=== PATIENT | female | born 1945 | race Caucasian/White ===

== ENCOUNTER 2018-10-21 07:39 | Observation (INO) | payer MEDICARE ==
[~2018-10-21] VITALS: Ht 157.5 cm; Wt 74.4 kg
[2018-10-21] MEDS ORDERED: DILTIAZEM120 M1 PO (08:05)
[2018-10-21] MEDS ORDERED: ELIQUIS5 MG PO (08:06)
[2018-10-21] MEDS ORDERED: LEVOTHYROXIN75 MCG PO (08:07)
--- NOTE | 2018-10-21 08:11 | NUR ---
PT APPEARS TO BE ALERT/ORIENTED X3, DOESNT REMEMBER IF SHE PASSED OUT OR NOT, STATES FELT A LITTLE SHAKEY UPON GETTING UP THIS AM, AND LAID DOWN ON THE FLOOR INSTEAD OF FALLING.
[2018-10-21 08:19] LABS: HEMATOCRIT 45.9 % (37.0-47.0); HEMOGLOBIN 15.6 g/dl (12.0-16.0); IMMATURE GRANULOCYTES 0.3 % (0.0-5.0); MEAN CELL VOLUME 87.3 fL CALC (80.0-100.0); MEAN CORPUSCULAR HGB 29.7 pG CALC (26.0-32.0); NEUT# 3.46 thou/uL (2.00-7.15); RED BLOOD COUNT 5.26 mill/uL (4.20-5.60); RED CELL DISTRI WIDTH 12.3 % (11.5-15.5)
[2018-10-21 08:30] LABS: ANION GAP 13 (6-22 (CALC)); BUN 22 mg/dL (8-23); BUN/CREATININE RATIO 32 (12-20 (CALC)); CARBON DIOXIDE 27 mmol/l (22-30); CHLORIDE 106 mmol/l (95-108); CREATININE 0.7 mg/dL (0.5-1.0); GFR > 60 ML/MIN (>=60 (CALC)); GFR FOR AFR.AMER. > 60 ML/MIN (>=60 (CALC)); POTASSIUM 3.7 mmol/l (3.5-5.1); SODIUM 142 mmol/l (137-146)
--- NOTE | 2018-10-21 09:06 | NUR ---
2ND EKG OBTAINED
--- NOTE | 2018-10-21 09:09 | NUR ---
PT RESTING QUIETLY ON STRETCHER, FAMILY AT BEDSIDE, PT STATES FEELS BETTER.
[2018-10-21 09:22] LABS: URINE BILIRUBIN - DIPSTICK NEGATIVE (NEGATIVE); URINE BLOOD DIPSTICK NEGATIVE (NEGATIVE); URINE COLOR YELLOW; URINE GLUCOSE - DIPSTICK NEGATIVE (NEGATIVE); URINE KETONE TRACE mg/dL (NEGATIVE); URINE LEUK ESTERASE NEGATIVE (NEGATIVE); URINE NITRITE - DIPSTICK NEGATIVE (Negative); URINE PH 6.5 (4.5-8.0); URINE PROTEIN - DIPSTICK NEGATIVE (NEG-TRACE); URINE SPECIFIC GRAVITY 1.015; URINE UROBILINOGEN - DIPSTICK 0.2 E.U./dL (0.2)
--- NOTE | 2018-10-21 09:44 | NUR ---
WAITING FOR ORDERS FROM DR. SILVERIO, PT REMAINS A/O X3, SMILING AND TALKING WITH FAMILY. SIDE RAILS UP, CALL LIGHT WITHIN REACH
[2018-10-21 10:01] VITALS: BP 123/85
--- NOTE | 2018-10-21 10:01 | NUR ---
PT CAME FROM ER VIA STRETCHER BY MARTI. DAUGHTER IN ROOM. CALL LIGHT IN REACH.
--- NOTE | 2018-10-21 10:07 | NUR ---
PT REPORT GIVEN TO MED [facility]G, AND PT TAKEN TO FLOOR PER STRETCHER AND TELEMENTRY
--- NOTE | 2018-10-21 11:06 | NUR ---
ASSESSMENT DONE. PT IS A&O X3. RESPS EVEN AND UNLABORED. DAUGHTER IN ROOM. PT STATED THAT SHE PASSED OUT IN HOME AND DOES NOT REMEMBER HER FALL. DAUGHTER STATED SHE FOUND PT ON THE FLOOR AND THE DRESSER ON TOP OF PT. PT DENIES ANY PAIN AT THIS TIME. NO BRUISES NOTED AT THIS TIME. TELE IN PLACE. ASSISTED TO THE BATHROOM WITH A WALKER. PT IS UNSTEADY ON HER FEET. PT DENIES FEELING DIZZY. PT VOID YELLOW URINE. ASSISTED PT BACK IN BED. SAFETY PRECAUTIONS REINFORCED AND CALL LIGHT IN REACH.
--- NOTE | 2018-10-21 15:25 | NUR ---
DR. SILVERIO AT BEDSIDE TO ASSESS PT AND DISCUSS POC. PT DENIES PAIN. DAUGHTER IN ROOM. CALL LIGHT IN REACH.
[2018-10-21 16:38] VITALS: BP 114/69
[2018-10-21 16:40] VITALS: BP 135/76
[2018-10-21 16:42] VITALS: BP 132/83
--- NOTE | 2018-10-21 18:20 | NUR ---
ASSISTED PT TO RESTROOM USING A WALKER; PT VOIDED CLEAR, YELLOW URINE; FAMILY AT BEDSIDE; DAUGHTER WANTS PT TO HAVE A BATH;
--- NOTE | 2018-10-21 19:00 | NUR ---
RECEIVED REPORT FROM NURSE LOREE PATIENT RESTING IN BED, FAMILY IN ROOM, DENIES PAIN OR DISCOMFORT WITH EVEN UNLABORED BREATHING CALL LIGHT AT REACH.
[2018-10-21 19:51] VITALS: BP 137/69
--- NOTE | 2018-10-21 20:00 | NUR ---
PATIENT ALERT AND ORIENTED X3 ABLE TO MAKE NEEDS KNOWN, WITH SALINE LOCK ON LAC G20 EMS SITE, PATENT FLUSHES WELL, LAST BM 10/21, DENIES PAIN OR DISCOMFORT AT THIS TIME, ONE PERSON ASSIST WITH TRANSFER. CURRENTLY RESTING IN BED, FAMILY IN ROOM CALL LIGHT AT REACH.
[2018-10-21 23:54] VITALS: BP 106/61
[2018-10-22] VITALS (8 sets, daily range): BP systolic 111–137; BP diastolic 61–78
--- NOTE | 2018-10-22 01:06 | NUR ---
PATIENT RESTING IN BED EASILY AWAKEN, ASSISTED TO BATHROOM, ASSISTED BACK IN BED, CURRENTLY RESTING IN BED EYES CLOSED EVEN UNLABORED BREATHING, CALL LIGHT AT REACH.
--- NOTE | 2018-10-22 03:48 | NUR ---
PATIENT APPEARS TO BE SLEEPING WITH EYES CLOSED, NO DISCOMFORTS NOTED AT THIS TIME, CALL LIGHT WITHIN REACH.
--- NOTE | 2018-10-22 04:55 | NUR ---
ORTHOSTATIC BP AND PULSE TAKEN AND RECORDED
[2018-10-22 05:03] LABS: HEMATOCRIT 43.5 % (37.0-47.0); HEMOGLOBIN 14.8 g/dl (12.0-16.0); IMMATURE GRANULOCYTES 0.2 % (0.0-5.0); MEAN CELL VOLUME 87.5 fL CALC (80.0-100.0); MEAN CORPUSCULAR HGB 29.8 pG CALC (26.0-32.0); NEUT# 4.39 thou/uL (2.00-7.15); RED BLOOD COUNT 4.97 mill/uL (4.20-5.60); RED CELL DISTRI WIDTH 12.5 % (11.5-15.5)
[2018-10-22 05:31] LABS: ALBUMIN 3.7 g/dL (3.2-5.0); ALKALINE PHOSPHATASE 70 u/l (38-126); ANION GAP 12 (6-22 (CALC)); BILIRUBIN, TOTAL 0.6 mg/dL (0.0-1.4); BUN 22 mg/dL (8-23); BUN/CREATININE RATIO 28 (12-20 (CALC)); CARBON DIOXIDE 26 mmol/l (22-30); CHLORIDE 105 mmol/l (95-108); CREATININE 0.8 mg/dL (0.5-1.0); GFR > 60 ML/MIN (>=60 (CALC)); GFR FOR AFR.AMER. > 60 ML/MIN (>=60 (CALC)); POTASSIUM 3.7 mmol/l (3.5-5.1); SGOT/AST 23 u/l (9-36); SODIUM 140 mmol/l (137-146); TOTAL PROTEIN 6.1 g/dL (6.3-8.2)
--- NOTE | 2018-10-22 07:00 | NUR ---
SHIFT CHANGE REPORT, PT AWAKE ALERT AND ORIENTED RELAXING IN BED, DENIES DISCOMFORT/PAIN, ALL NEEDS MET/ADDRESSED, CALL RAMOS IN REACH.
--- NOTE | 2018-10-22 11:00 | NUR ---
DR SILVERIO ROUNDED AND DISCUSSED PLAN OF CARE WITH D/C INSTRUCTIONS, PT STATED UNDERSTANDING.
--- NOTE | 2018-10-22 11:40 | NUR ---
Pt seen for treatment this am. She was resting in bed. Pt BP monitiored supine 123/70, sitting 149/74, standing 127/76. Pt moved supine to sit with modified indep, sit to and from stand with SBA/CGA. Pt ambulated with RW x 80' but had poor safety and control of walker requiring verbal cues. Standing balance activities and ex performed. Side stepping, simple braid, forward/backward walking. Standing eyes open/eyes closed, up on toes, tandum standing practiced with CGA/min assist to maintain balance. SLS was less than 5 sec. AmPac 6 click at 18 OP follow up.
--- NOTE | 2018-10-22 12:49 | NUR ---
Discharge instructions given. Patient verbalizes understanding of same. Discharged in stable condition via Wheelchair to Home with family. All belongings sent with pt.
== END 2018-10-22 12:39 | disposition home or self-care (01) ==
LOC: ED 07:39 → ED-I 08:36 → ED 09:00 → MS2 09:01
PROVIDERS: Family Medicine; ADMIT Internal Medicine Nephrology; ATTEND Internal Medicine Nephrology
DX: I95.1 Orthostatic hypotension (principal); I48.0 Paroxysmal atrial fibrillation; I10 Essential (primary) hypertension; E03.9 Hypothyroidism, unspecified; R32 Unspecified urinary incontinence; Z79.01 Long term (current) use of anticoagulants; Z79.899 Other long term (current) drug therapy